=== PATIENT | female | born 1980 | race Caucasian/White ===

== ENCOUNTER 2024-05-27 10:32 | Outpatient (AMB) | payer BC, SELFPAY ==
[2024-05-27 10:48] VITALS: BP 143/88; PULSE 80; RESP 16; TEMP 36.8; O2SAT 99; BMI 28.5
--- NOTE | 2024-05-27 10:48 | GYNCLNT_ITS ---
Vital Signs 05/27/24 10:48 Height 1.63 m Height Method Stated Weight 75.523 kg Weight Measurement Method Standing Scale BMI 28.5 BP 143/88 H Blood Pressure Source Automatic Cuff Blood Pressure Location Left Upper Arm Position Sitting Respiration 16 Pulse 80 Pulse Source Monitor Temp 98.2 F Temp Source Oral Pulse Oximetry (%) 99 Oxygen Delivery Method Room Air Allergies/Home Meds Allergies & Medications Allergies No Known Allergies Allergy (Verified 05/27/24 10:51) Medication Reconciliation No Known Home Medications 05/27/24 [History Confirmed 05/27/24] Intake Visit Data Collection New Patient or Established: New Patient (never been to [facility]) Reason for Visit:: Annual wellness exam Consent obtained for Telemed Visit: No Seen by Clinical Staff ONLY (RN/MA): No 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: No Do You Feel Safe at Home: Yes Authorities Contacted: N/A PCP or OBGYN visit in last 3 months: No Hx Now: No Are you currently on any form of Control: No Pain Present Currently: No Pain Scale Used: Dinh-Lee/Numerical Pain scale:: 0 Smoking Status Smoking Status: Never smoker 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 1. Little interest or pleasure in doing things: not at all 2. Feeling down, depressed, or hopeless: not at all Total score: 0 PHQ-9 3. Trouble falling or staying asleep, or sleeping too much: Not at all 4. Feeling tired or having little energy: Not at all 5. Poor appetite or overeating: Not at all 6. Feeling bad about yourself - or that you are a failure or have let yourself or your family down: Not at all 7. Trouble concentrating on things, such as reading the newspaper or watching television: Not at all 8. Moving or speaking so slowly that other people could have noticed? - Or the opposite - being so fidgety or restless that you have been moving around a lot more than usual: not at all 9. Thoughts that you would be better off or of hurting yourself in some way: Not at all Total score: 0 If you checked off any problems, how difficult have these problems made it for you to do your work, take care of things at home, or get along with other people?: not difficult at all Source: Developed by Drs. Costa Lew, Nava Gilmore, Kevin Augustin and colleagues, with an educational duane from [employer] Depression screen completed yes Social History Living Situation History Marital Status: Lives With: Family Housing: House Housing Other:: Has 4 daughters at home. Tobacco History Smoking Status: Never smoker Alcohol History Alcohol Intake: Never Domestic Abuse History Do You Feel Safe at Home: Yes Past Medical History Past Medical History Have you ever been diagnosed with any of the following: Neurological Problems Seizures: No Migraine: No Cardiology Problems Cardiac Arrhythmia: No Heart Murmur: No Respiratory Problems Asthma: No Stomache/Intestinal Problems Gall Bladder Disease: No Irritable Bowel: No Obesity: No Genital/Urinary Problems Renal Disease: No Kidney Stones: No Reproductive Problems Breast Cancer: No Endometriosis: No Fibroids: No Genital Herpes: No Gonorrhea: No Pelvic Inflammatory Disease: No Polycystic Ovarian Syndrome: No Previous Pregnancies: Yes (History of vaginal delivery x 3, with tubal ligation in past) Syphilis: No Uterine Prolapse: No Musculoskeletal Problems Arthritis: No Head,Eye,Nose,Throat Problems Blind: No Endocrine Problems Diabetes Mellitus Type 2: No Hyperthyroidism: No Hypothyroidism: No Systemic Lupus Erythematosus: No Blood Problems Anemia: No Psychologic Problems Anxiety: Yes (On Zoloft) Attention Deficit Disorder: No Other Problems Hospitalization: Yes (For x 4) Autoimmune Disease: No Anesthesia Reactions: No Surgical History Appendectomy: No Bariatric Surgery: No Cholecystectomy: No Additional Surgical History: History of x 1 with tubal ligation, hi story of NovaSure endometrial ablation 2 years ago History of Present Illness HPI Narrative The patient is a 44-year-old -0-0-4 history of vaginal delivery x 3 followed by x 1 with a tubal ligation. She has an 18-year-old daughter a 16-year-old daughter and 15-year-old daughter and a 12-year-old daughter at home. Her oldest wants to go into architecture or engineering and is applying to college. Patient does need a mammogram. She states that after her ablation 2 years ago her cycles were very light monthly however last month she was a week late and had a heavy cycle with clots. She has not had an ultrasound yet she states this is unusual for her. She denies hot flashes ,night sweats, or abnormal vaginal discharge. She feels like she might be starting to get a bladder infection wonders if I could check a urinalysis. Primary care is Dr. Miller Cycles are usually light. Patient had an ablation 2 years ago. She had 1 heavy cycle approximately 3 weeks ago. Menstrual character: normal Gynecologic pain symptoms: Reports none Urogynecologic symptoms: Reports urinary urgency and urinary frequency (Patient would like to to have a UA checked to make sure she does not have a) Menopause concerns/symptoms: Reports none Review of Systems Review of Systems Narrative Review of Systems: One recent heavy cycle, no hot flashes. No night sweats. No abnormal vaginal discharge. No new sexual partners. Patient does report recent dysuria. Systems Reviewed: All systems reviewed, normal except as documented Genitourinary Genitourinary: Reports urinary frequency (Patient would like to to have a UA checked to make sure she does not have a) and Reports urinary urgency Exam General Limitations: no limitations General Appearance: alert, in no apparent distress, cooperative, healthy appearing and well groomed Neck Neck exam: Present normal inspection, full ROM and trachea midline Chest Chest inspection: Present normal inspection and symmetric chest wall rise Exp Chest Breast: bilateral: other (Bilateral breast exam performed. Some fibrocystic changes.) Resp Respiratory exam: Present normal lung sounds bilaterally Card Cardiovascular exam: Present regular rate, normal rhythm and normal heart sounds Abdominal Abdominal exam: Present soft and normal bowel sounds External exam: Present normal external exam Speculum exam: Present normal speculum exam Bimanual exam: Present normal bimanual exam Extremities Extremities exam: Present normal inspection and full ROM Psych Psychiatric exam: Present normal affect and normal mood Skin Skin exam: Present warm, dry, intact and normal color Assessment & Plan Diagnosis / Problem List (1) Encounter for Routine Gynecological Examination: Qualifiers: Gynecological examination findings: abnormal findings ABSENT Qualified Code(s): Z01.419 - Encounter for gynecological examination (general) (routine) without abnormal findings Plan: Pap with co-testing to HPV performed, breast exam done and encouraged. Mammogram was ordered. Patient will keep an eye on any abnormal uterine bleeding and call if this is persistent. She has already had a NovaSure ablation and does not want to take hormones. If patient continues to have heavy cycles she might consider hysterectomy. (2) Dysuria: Status: Acute Plan: Urinalysis possible culture ordered Office Procedures OB Clinic LOC & Office Proc's Nursing/Assessment Patient Status: Initial/New Patient OB Clinic Nursing Assessment: BP Monitoring, Medication Reconciliation, Update PMH in EMR and Vital Signs OB Clinic Coordination of Care: Consent,records obtained, informed consent, Education Simp Pt/Fam, Lab and Imaging orders and Staff clarify orders Miscellaneous Interventions: Pelvic/Pap Smear Set up New Patient Charge New Patient Point Assignment: 1109 New Patient Point Charge: HEAD NURSE Level 3 ([id number]) In Clinic Procedures Pap Smear: Yes TIMBER FALLER: Papsmear Pap Smear Procedure Chaparone in room during procedure?: No Pre-op diagnosis general: Annual wellness exam Post-op diagnosis procedure note: Same Procedure Notes:: Pap with cotesting to HPV for performed Papsmear completed: yes
== END 2024-05-27 11:50 | disposition home or self-care (01) ==
LOC: HODSOBC 10:32
PROVIDERS: PCP Family Medicine; Referring Provider Family Medicine; Supervising Provider Obstetrics & Gynecology; Visit Provider Obstetrics & Gynecology
DX: Z01.419 Encounter for gynecological examination (general) (routine) without abnormal findings (principal); Z11.51 Encounter for screening for human papillomavirus (HPV); R30.0 Dysuria
CPT/HCPCS: 99203; Q0091; G0463

== ENCOUNTER → 2024-05-27 | Outpatient (CLI) | payer BC, SELFPAY ==
[2024-05-27 12:03] LABS: Collection Type, Urine Clean Catch
[2024-05-27 13:08] LABS: Bilirubin,Urine Negative (Negative); Blood,Urine 2+ (Negative); Clarity,Urine Clear (Clear/Hazy); Color,Urine Colorless (Lt Yel-Yel); Culture Indicated,Urine Not Indicated; Glucose, Urine Negative (Negative); Ketones,Urine Negative (Negative); Leukocyte Esterase,Urine Positive (Negative); Nitrite,Urine Negative (Negative); Protein,Urine Negative (Neg - Trace); RBC,Urine < 1 /hpf (0-3); Specific Gravity,Urine 1.009 (1.001-1.035); Squamous Epithelial Cell,Urine 3 /hpf (0-5); Urobilinogen,Urine Negative mg/dL (0.0-1.0); WBC,Urine 2 /hpf (0-5)
== END | disposition home or self-care (01) ==
PROVIDERS: Referring Provider Obstetrics & Gynecology; Visit Provider Obstetrics & Gynecology
DX: R30.0 Dysuria (principal)
CPT/HCPCS: 81001